=== PATIENT | female | born 2000 | race Caucasian/White ===

== ENCOUNTER 2023-02-22 21:19 | Emergency (ER) | payer OTHER, SELFPAY ==
[2023-02-22] VITALS (8 sets, daily range): BP systolic 120; BP diastolic 67; PULSE 77–90; RESP 13–22; TEMP 36.7; O2SAT 98–99; BMI 31.2
--- NOTE | 2023-02-22 21:29 | ECG_ITS ---
The [facility] Test Date: 2023-02-22 Pat Name: TAMELA ARNOLD Department: Room: - Gender: Female Bridge [employer]: : 2000 Requested By: Order Number: [id number] Reading MD: JUNI CARTY Measurements Intervals [place] Rate: 70 P: 61 OK: 138 QRS: 77 QRSD: 74 T: 76 QT: 358 QTc: 380 Interpretive Statements 1100 Sinus rhythm 9110 normal ECG No previous ECG available for comparison Electronically Signed On 02-24-2023 6:49:19 EDT by JUNI CARTY
--- NOTE | 2023-02-22 21:32 | PC.NURSE ---
pt presents to ED c/o migraine that she has had for the last week. pt has hx of migraines and has been seeing her neurologist about them, pt placed on new medication a week ago called venlafaxine 37.5, pt states that ever since she started the medication she has felt like the symptoms have been worse. pt currently c/o dizziness, loss of vision, and pain all over head/and down neck. pt states she is due for her medication now but hasn't taken it yet today.
--- NOTE | 2023-02-22 21:44 | ED.GENADUL1 ---
HPI - General Adult General Chief complaint: Headache Stated complaint: Headache Time Seen by Provider: 02/22/23 21:34 Source: patient Mode of arrival: walk-in Limitations: no limitations History of Present Illness HPI narrative: past history of migraine headaches. has tried several different medications per her neurologist. A preventable injectable was ordered by her Neurologist but her insurance would not pay for it. She was then started on low dose Effexor xr 37.5 qd to see if this would help. Started about 1-1.5 weeks ago. Afterwards she developed worsening headache. [place] over the past couple of days has increased more. Also has periods of blurred vision. Points to a sign on the wall in the room and states when her vision if blurry she can't read the sign. Able to read it now. States the [place] is better than it was on the way to the hospital. mild nausea . No fever or neck stiffness Onset (ago): week(s) Related Data Home Medications Medication Instructions Recorded Confirmed venlafaxine 37.5 mg mg PO 02/22/23 capsule,extended release 24 hr Allergies Allergy/AdvReac Type Severity Reaction Status Date / Time No Known Drug Allergies Allergy Verified 02/22/23 21:28 Review of Systems ROS Status of ROS 10 or more systems reviewed and unremarkable except as noted in history and below [facility] Social History Smoking status: Current every day smoker Exam Constitutional Vital Signs, click to edit/add: Last Vital Signs Temp 98.0 F 02/22/23 21:24 Pulse 89 02/22/23 22:20 Resp 18 02/22/23 22:20 BP 120/67 02/22/23 21:25 Pulse Ox 98 02/22/23 22:20 O2 Del Method Room Air 02/22/23 21:24 Common normals: no apparent distress, average body habitus, oriented x3, no limitations, healthy appearing and alert Eye Common normals: EOMs intact bilaterally and conjunctivae normal Respiratory Common normals: normal respiratory effort, no retractions, no use of accessory muscles and clear to auscultation bilaterally Cardio Common normals: regular rate, regular rhythm, S1 normal heart sound and S2 normal heart sound GI Common normals: Normal to inspection, nondistended, normoactive bowel sounds present and non-tender Extremity Common normals: normal to inspection and full ROM Neuro Common normals: oriented x3, CN's II-XII intact bilaterally, moves all extremities and no focal motor deficits Psych Appearance: grossly normal Course Vital Signs Vital signs: Vital Signs Temperature 98.0 F 02/22/23 21:24 Pulse Rate 89 02/22/23 21:24 Respiratory Rate 16 02/22/23 21:24 Blood Pressure 120/67 02/22/23 21:24 Pulse Oximetry 99 02/22/23 21:24 Oxygen Delivery Method Room Air 02/22/23 21:24 Temperature 98.0 F 02/22/23 21:24 Pulse Rate 89 02/22/23 22:20 Respiratory Rate 18 02/22/23 22:20 Blood Pressure 120/67 02/22/23 21:25 Pulse Oximetry 98 02/22/23 22:20 Oxygen Delivery Method Room Air 02/22/23 21:24 Medical Decision Making MDM Narrative Medical decision making narrative: patient presented complaining of a migraine. migraine worse after she started effexor xr prescribed by her neurologist. exam neg. CT brain neg. Patient was medicated with reglan. When nursing went to check on the patient she had eloped. Nursing not able to locate her IV hep lock that was in place Lab Data Labs: Lab Results 02/22/23 Range/Units 21:55 WBC 5.9 (4.0-11.0) 10^3/uL RBC 4.13 L (4.20-5.40) 10^6/uL Hgb 9.0 L (12.0-16.0) g/dL Hct 30.5 L (36.0-48.0) % MCV 73.8 L (81.0-99.0) fL MCH 21.8 L (26.7-34.0) pg MCHC 29.5 L (29.9-35.2) g/dL RDW 17.2 H (11.0-15.0) % Plt Count 268 (150-450) 10^3/uL MPV 9.6 (9.5-13.5) fL Neut % (Auto) 51.1 (43.0-75.0) % Lymph % (Auto) 33.0 (20.5-60.0) % Johnson % (Auto) 8.4 (1.7-12.0) % Eos % (Auto) 6.1 (0.9-7.0) % Baso % (Auto) 1.2 (0.2-2.0) % Neut # (Auto) 3.0 (1.4-6.5) 10^3/uL Lymph # (Auto) 2.0 (1.2-3.8) 10^3/uL Johnson # (Auto) 0.5 (0.3-0.8) 10^3/uL Eos # (Auto) 0.4 (0.0-0.7) 10^3/uL Baso # (Auto) 0.1 (0.0-0.1) 10^3/uL Abs Immat Gran (auto) 0.01 (0.00-0.03) 10^3/uL Imm/Tot Granulo (auto) 0.2 (0.0-0.5) % Sodium 140 (136-145) mmol/L Potassium 3.8 (3.5-5.1) mmol/L Chloride 106 (98-107) mmol/L Carbon Dioxide 26.1 (21.0-32.0) mmol/L Anion Gap 11.7 BUN 8.0 (7.0-18.0) mg/dL Creatinine 0.70 (0.55-1.02) mg/dL Est GFR ( Amer) >60 (>=60) Est GFR (Non-Af Amer) >60 (>=60) BUN/Creatinine Ratio 11.4 Glucose 98 (74-106) mg/dL Calcium 8.3 L (8.5-10.1) mg/dL Discharge Plan Discharge Chief Complaint: Headache Clinical Impression: Migraine Patient Disposition: Left Against Medical Advice Prescriptions / Home Meds: No Action venlafaxine 37.5 mg capsule,extended release 24hr PO Stand Alone Forms: Portal Instructions Referrals: Physician,Non-Staff, MD [Primary Care Provider] - 1 week Discharge Date/Time: 02/22/23 22:35
--- NOTE | 2023-02-22 21:49 | CT_ITS ---
The [address] [address] Patient Name: TAMELA ARNOLD MRN: [id number] date: 2000 Sex: F Assigned Patient Location: ER Current Patient Location: ER Accession/Order Number: [id number] Exam Date: 02/22/2023 22:11 Report Date: 02/22/2023 22:28 At the request of: DANNY SOLOMON Procedure: CT head/brain wo con EXAMINATION: CT head/brain wo con, 02/22/2023 10:11 PM EDT HISTORY: headache COMPARISON: CT head 02/07/2022 TECHNIQUE: CT scan of the head was performed without IV contrast. CT dose reduction technique was used, including Automated Exposure Control. FINDINGS: BRAIN PARENCHYMA/CSF SPACES: Ventricles are normal in size for age. There is no hemorrhage, mass effect or midline shift. There are no other significant findings. PARANASAL SINUSES: Clear. SKULL BASE AND CALVARIUM: Normal. EXTRACRANIAL SOFT TISSUES: Normal. CT/CT head/brain wo con IMPRESSION: Normal noncontrast head CT. Electronically authenticated by: AVINASH HENDRICKS Date: 02/22/2023 22:28
[2023-02-22] MEDS: METOCLOPRAMIDE HCL 10 MG/2 ML VIAL IVP (22:01)
[2023-02-22 22:05] LABS: Basophils Absolute Auto 0.1 10^3/uL (0.0-0.1); Basophils Percent Auto 1.2 % (0.2-2.0); Eosinophils Absolute Auto 0.4 10^3/uL (0.0-0.7); Eosinophils Percent Auto 6.1 % (0.9-7.0); Hematocrit 30.5 % (36.0-48.0); Immature Granulocytes Abs Auto 0.01 10^3/uL (0.00-0.03); Immature Granulocytes Pct Auto 0.2 % (0.0-0.5); Mean Corpuscular HGB Conc 29.5 g/dL (29.9-35.2); Mean Corpuscular Hemoglobin 21.8 pg (26.7-34.0); Mean Corpuscular Volume 73.8 fL (81.0-99.0); Mean Platelet Volume 9.6 fL (9.5-13.5); Monocytes Absolute Auto 0.5 10^3/uL (0.3-0.8); Monocytes Percent Auto 8.4 % (1.7-12.0); Neutrophils Percent Auto 51.1 % (43.0-75.0); Platelet Count 268 10^3/uL (150-450); Red Blood Count 4.13 10^6/uL (4.20-5.40); Red Cell Distribution Width 17.2 % (11.0-15.0); White Blood Count 5.9 10^3/uL (4.0-11.0)
[2023-02-22 22:16] LABS: Anion Gap 11.7; BUN Creatinine Ratio 11.4; Calcium 8.3 mg/dL (8.5-10.1); Carbon Dioxide 26.1 mmol/L (21.0-32.0); Chloride 106 mmol/L (98-107); Estimated GFR (African America >60 (>=60); Estimated GFR (Non-African Ame >60 (>=60); Glucose 98 mg/dL (74-106); Potassium 3.8 mmol/L (3.5-5.1); Sodium 140 mmol/L (136-145)
== END 2023-02-22 22:35 | disposition left against medical advice (07) ==
PROVIDERS: Emergency Provider Internal Medicine
DX: G43.909 Migraine, unspecified, not intractable, without status migrainosus (principal); F17.210 Nicotine dependence, cigarettes, uncomplicated
CPT/HCPCS: 36415; 70450; 80048; 85025; 93005; 96374; 99285